=== PATIENT | male | born 1955 | race African-American/Black ===

== ENCOUNTER 2023-01-26 03:27 | Emergency (ER) | payer OTHER, MEDICAID ==
[2023-01-26 04:38] LABS: #Basophils 0.1 10x3/uL (0.0-0.2); #Eosinphils 0.1 10x3/uL (0.0-0.5); #Monocytes 0.6 10x3/uL (0.0-1.1); %Basophils 1.1 % (0.0-2.0); %Eosinophils 1.9 % (0.0-6.0); %Monocytes 10.7 % (0.0-10.0); %Neutrophils 52.1 % (40.0-75.0); Hemoglobin 16.3 g/dL (13.5-17.5); Mean Corpuscular HGB CONC 32.7 g/dL (32.0-36.0); Mean Corpuscular Hemoglobin 30.5 pg (27.0-33.0); Mean Corpuscular Volume 93.1 fl (81.2-95.1); Mean Platelet Volume 10.1 fl (7.4-10.4); Platelet Count 287 10x3/uL (150-450); Red Blood Cell (RBC) Count 5.35 10x6/uL (4.32-5.72); White Blood Cell (WBC) Count 5.7 10x3/uL (3.5-10.5)
[2023-01-26 04:52] LABS: ALT (SGPT) 13 U/L (8-55); AST (SGOT) 21 U/L (5-34); Albumin 4.4 g/dL (3.4-4.8); Alkaline Phosphatase 87 U/L (40-110); Anion Gap 16 mmol/L (10-20); BUN (Urea Nitrogen) 17 mg/dL (8.4-25.7); Bilirubin, Total 0.3 mg/dL (0.2-1.2); Calc. Creatinine Clearance 0 mL/min (70-130); Calcium 9.7 mg/dL (7.8-10.44); Carbon Dioxide 22 mmol/L (23-31); Chloride 108 mmol/L (98-107); Estimated GFR 68; Globulin 3.7 g/dL (2.4-3.5); Glucose 112 mg/dL (80-115); Potassium 4.2 mmol/L (3.5-5.1); Protein, Total 8.1 g/dL (5.8-8.1); Sodium 142 mmol/L (136-145)
[2023-01-26] MEDS ORDERED: Iopamidol 370 76% 100 ML VIAL ONE (10:39)
== END 2023-01-26 07:09 | disposition home or self-care (01) ==
LOC: CSHERS 03:27
DX: F45.8 Other somatoform disorders (principal)
CPT/HCPCS: 70491; 80053; 84484; 85025; 93005; Q9967